=== PATIENT | male | born 1990 | race Caucasian/White ===

== ENCOUNTER 2020-01-17 00:05 | Emergency (ER) | payer SELFPAY ==
[~2020-01-17] VITALS: Ht 165.1 cm; Wt 82.0 kg
[2020-01-17] MEDS ORDERED: CLONIDINE 0.2MG TABLET PO ONE (01:00)
[2020-01-17 01:16] LABS: BASOPHILS % 0.1 % (0.0-2.0); EOSINOPHILS % 0.8 % (0.0-5.0); HEMATOCRIT. 41.3 % (42.0-52.0); HEMOGLOBIN. 14.6 g/dL (14.0-18.0); LYMPHOCYTES % 23.6 % (20.0-50.0); MEAN CORPUSCULAR HEMOGLOBIN 30.9 pg (28.0-32.0); MEAN CORPUSCULAR VOLUME 87.2 fL (80.0-94.0); MEAN PLATELET VOLUME 8.5 fl (7.4-10.4); MONOCYTES % 9.4 % (2.0-8.0); NEUTROPHILS % 66.1 % (40.0-76.0); PLATELET 243 x1000/uL (130-400); RED BLOOD CELL COUNT 4.73 mill/uL (4.7-6.1); RED CELL DISTRIBUTION WIDTH 12.8 % (11.6-14.6)
[2020-01-17 01:18] LABS: CHLORIDE 105 mEq/L (98-107)
[2020-01-17 02:42] VITALS: BP 129/85
== END 2020-01-17 02:45 | disposition home or self-care (01) ==
LOC: ER 00:05
DX: R00.2 Palpitations (principal); I10 Essential (primary) hypertension; R42 Dizziness and giddiness; E78.00 Pure hypercholesterolemia, unspecified
CPT/HCPCS: 36415; 71045; 80053; 83880; 84484; 85025; 93005; 99285

== ENCOUNTER 2020-02-12 18:45 | Emergency (ER) | payer MEDICAID ==
[~2020-02-12] VITALS: Ht 167.6 cm; Wt 82.0 kg
[2020-02-12] MEDS ORDERED: SODIUM CHLORIDE 0.9% 1,000 ML IV ONE (20:11)
[2020-02-12] MEDS ORDERED: ACETAMINOPHEN 500MG TABLET PO ONE (20:15)
[2020-02-12] MEDS ORDERED: ASPIRIN 81MG TABLET PO ONE (20:15)
[2020-02-12 21:00] VITALS: BP 134/86
[2020-02-12 21:11] LABS: BASOPHILS % 0.2 % (0.0-2.0); HEMATOCRIT. 43.4 % (42.0-52.0); HEMOGLOBIN. 15.3 g/dL (14.0-18.0); LYMPHOCYTES % 24.3 % (20.0-50.0); MEAN CORPUSCULAR HEMOGLOBIN 30.7 pg (28.0-32.0); MEAN CORPUSCULAR VOLUME 87.1 fL (80.0-94.0); MEAN PLATELET VOLUME 8.6 fl (7.4-10.4); MONOCYTES % 8.3 % (2.0-8.0); NEUTROPHILS % 66.2 % (40.0-76.0); PLATELET 272 x1000/uL (130-400); RED BLOOD CELL COUNT 4.98 mill/uL (4.7-6.1); RED CELL DISTRIBUTION WIDTH 12.6 % (11.6-14.6)
[2020-02-12 21:22] LABS: CHLORIDE 105 mEq/L (98-107)
== END 2020-02-12 23:11 | disposition home or self-care (01) ==
LOC: ER 18:45
DX: R51 Headache (principal); T50.905A Adverse effect of unspecified drugs, medicaments and biological substances, initial encounter; Y92.89 Other specified places as the place of occurrence of the external cause; I10 Essential (primary) hypertension
CPT/HCPCS: 36415; 70450; 71045; 80053; 84484; 85025; 93005; 99285; J7030; Z7610

== ENCOUNTER 2020-02-18 02:50 | Emergency (ER) | payer MEDICAID ==
[~2020-02-18] VITALS: Ht 160 cm; Wt 84.0 kg
[2020-02-18] MEDS ORDERED: KETOROLAC 30MG/ML VIAL IV ONE (03:30)
[2020-02-18 03:53] LABS: BASOPHILS % 0.2 % (0.0-2.0); EOSINOPHILS % 1.1 % (0.0-5.0); HEMATOCRIT. 42.4 % (42.0-52.0); LYMPHOCYTES % 26.2 % (20.0-50.0); MEAN CORPUSCULAR HEMOGLOBIN 30.6 pg (28.0-32.0); MEAN CORPUSCULAR VOLUME 86.5 fL (80.0-94.0); MEAN PLATELET VOLUME 8.3 fl (7.4-10.4); MONOCYTES % 9.5 % (2.0-8.0); PLATELET 265 x1000/uL (130-400); RED BLOOD CELL COUNT 4.91 mill/uL (4.7-6.1); RED CELL DISTRIBUTION WIDTH 12.5 % (11.6-14.6)
[2020-02-18 04:00] LABS: CHLORIDE 106 mEq/L (98-107)
[2020-02-18] MEDS ORDERED: ONDANSETRON HCL 4MG/2ML INJ IV ONE (04:15)
[2020-02-18] MEDS ORDERED: ALPRAZOLAM 0.5 MG TABLET PO ONE (04:15)
[2020-02-18 07:24] VITALS: BP 137/87
== END 2020-02-18 07:26 | disposition home or self-care (01) ==
LOC: ER 02:50
DX: R07.89 Other chest pain (principal); G47.00 Insomnia, unspecified; I10 Essential (primary) hypertension
CPT/HCPCS: 36415; 74021; 80053; 83690; 83880; 84484; 85025; 93005; 96374; 96375; 99285; J1885; J2405

== ENCOUNTER 2020-02-26 14:52 | Emergency (ER) | payer MEDICAID ==
[~2020-02-26] VITALS: Ht 172.7 cm; Wt 80.0 kg
[2020-02-26] MEDS ORDERED: IBUPROFEN 600MG TABLET PO ONE (16:30)
[2020-02-26] MEDS ORDERED: LORAZEPAM 0.5MG TABLET PO ONE (17:30)
[2020-02-26 18:22] VITALS: BP 145/95
== END 2020-02-26 18:21 | disposition home or self-care (01) ==
LOC: ER 15:15
DX: R07.89 Other chest pain (principal); F41.9 Anxiety disorder, unspecified; R20.2 Paresthesia of skin; I10 Essential (primary) hypertension
CPT/HCPCS: 71045; 93005; 99283